=== PATIENT | female | born 1995 | race Caucasian/White ===

== ENCOUNTER 2017-12-05 11:32 | Emergency (ER) | payer OTHER, SELFPAY ==
[2017-12-05 11:33] VITALS: BP 156/78; PULSE 79; RESP 16; TEMP 37.1; O2SAT 98; BMI 32.3
--- NOTE | 2017-12-05 11:53 | RAD_ITS ---
STUDY: X-RAY - RIGHT ANKLE REASON FOR EXAM: Female, 22 years old. stepped on a shoe in the middle of the night, medial right ankle pain TECHNIQUE: 3 view(s) of the ankle. COMPARISON: None. FINDINGS: Normal visualized distal tibia and fibula. Normal medial and lateral malleoli. Normal tibiotalar articulation and ankle mortise. Normal visualized talus and calcaneus. The visualized subtalar, talonavicular, calcaneocuboid and tarsal articulations are normal. There is lateral malleolar soft tissue swelling. RAD/Ankle min 3 Views IMPRESSION: No acute fracture is demonstrated. Electronically Signed: Evelyn Matta MD at 12:36 EDT , Service support ,
--- NOTE | 2017-12-05 12:18 | ED.VISSUMM ---
- ER Visit Summary Date of Service: 12/05/17 Chief Complaint: [Injury right ankle] History of Present Illness: The patient is a 22 F [presents to the emergency department after sustaining an injury to her right ankle around 2 AM. Patient states that she was getting out of her bunk and she jumped off the last step rolling her right ankle. Patient having a hard time bearing weight secondary to pain. Patient denies any other injuries.] Physical Examination: [Right foot and ankle-patient has soft tissue swelling over the lateral malleolus with tenderness to palpation. Patient has tenderness over the medial malleolus. No pain at the proximal fibular head and no pain at the base of the fifth metatarsal. Patient neurovascular intact distally.] Test Results: [X-rays of the right ankle obtained read by myself as no acute fractures awaiting official report from radiology.] Emergency Department Course and Treatment: [Patient will be given an air splint and crutches] Treatment Plan: [Patient advised to take naproxen for pain. Patient advised to ice and elevate extremity.] Disposition: [Discharged to home in stable condition. Patient advised to follow-up with Dr. Blayne Ramirez within next 7-10 days.] Impression: [Right ankle sprain] This note was generated with [employer] dictation software. It may contain incorrect words, spelling, and punctuation that were not noted in review of the chart prior to signing ED Disposition - Plan for ED Patient: Chief Complaint: Lower Extremity Injury Referrals: Blayne Ramirez MD [Primary Care Provider] -
--- NOTE | 2017-12-05 12:20 | ED.DEP ---
ED Disposition - Plan for ED Patient: Chief Complaint: Lower Extremity Injury Instructions: ED Sprain Ankle W X Ray Prescriptions: Naproxen [Naprosyn] 500 mg PO BID PRN #20 tab Referrals: Blayne Ramirez MD [Primary Care Provider] - 5-7 Days
== END 2017-12-05 12:57 | disposition home or self-care (01) ==
PROVIDERS: Emergency Provider Emergency Medicine; Family Provider Pediatrics; PCP Pediatrics
DX: S93.401A Sprain of unspecified ligament of right ankle, initial encounter (principal); X50.1XXA Overexertion from prolonged static or awkward postures, initial encounter; Y93.39 Activity, other involving climbing, rappelling and jumping off; Y92.9 Unspecified place or not applicable; E10.9 Type 1 diabetes mellitus without complications; F32.9 Major depressive disorder, single episode, unspecified; F41.9 Anxiety disorder, unspecified; Z79.4 Long term (current) use of insulin; Z79.899 Other long term (current) drug therapy
CPT/HCPCS: 73610; 99284